=== PATIENT | female | born 1945 | race Caucasian/White ===

== ENCOUNTER 2016-11-18 14:16 | Emergency (ER) | payer MEDICARE, BC | END 2016-11-18 15:36 | disposition home or self-care (01) | LOC: ER 14:16 | DX: L02.212 Cutaneous abscess of back [any part, except buttock and flank] (principal); Z98.890 Other specified postprocedural states; Z79.899 Other long term (current) drug therapy; Z79.82 Long term (current) use of aspirin | CPT/HCPCS: 10061; 87070; 99070; 99283-25 ==